=== PATIENT | male | born 1955 ===

== ENCOUNTER 2017-04-19 14:07 | Emergency (ER) | payer MEDICARE, OTHER ==
[2017-04-19 14:07] VITALS: BMI 38.2
[2017-04-19 14:11] VITALS: BP 137/76; PULSE 72; RESP 16; TEMP 98; O2SAT 96
--- NOTE | 2017-04-19 14:43 | ED PDOC ---
Arrival/HPI - General Chief Complaint: Dizziness/Lightheaded Time Seen by Provider: 04/19/17 14:18 - History of Present Illness Narrative History of Present Illness (Text): 04/19/17 14:41 Patient is an 61 y/o M with hx of vertigo, with extensive negative outpatient workup, previously seen by me for similar complaint last year, presents to the ED complaining of dizziness. Patient reports that he was sitting in [facility] when he got dizzy. He describes the sensation as "room spinning." He reports associated nausea, worsened with movement. He denies headache. Denies trauma. Denies vomiting. He reports that he was in his usual state of health this morning. He reports that this episode is consistent with prior episodes and he took his meclizine when his symptoms started. He reports negative workup by ENT and neurology. Denies chest pain, shortness fo breath, fever, weakness, numbness, Past Medical History - Infectious Disease Hx of Infectious Diseases: None - Cardiac Hx Hypertension: Yes Hx Peripheral Edema: Yes - Pulmonary Hx Chronic Obstructive Pulmonary Disease (COPD): Yes Hx Sleep Apnea: Yes (Sleep Study done in 2011) - Neurological Hx Neurological Disorder: Yes Hx Dizziness: Yes Hx Syncope: Yes (Syncopal episode in 2013. Fell and needed stitches at back of head) Hx Vertigo: Yes - HEENT Hx HEENT Disorder: No - Renal Hx Renal Disorder: Yes Hx Kidney Stones: Yes (SURGERY- kidney stone) - Endocrine/Metabolic Hx Endocrine Disorders: Yes Hx Diabetes Mellitus Type 2: Yes - Hematological/Oncological Hx Blood Disorders: No - Integumentary Hx Dermatological Disorder: No - Musculoskeletal/Rheumatological Hx Musculoskeletal Disorders: Yes - Gastrointestinal Hx Gastrointestinal Disorders: Yes Hx Gastroesophageal Reflux: Yes - Genitourinary/Gynecological Hx Genitourinary Disorders: No - Psychiatric Hx Substance Use: No - Surgical History Other/Comment: kidney stone removal 1991 - Anesthesia Hx Anesthesia: Yes Hx Anesthesia Reactions: No Hx Malignant Hyperthermia: No - Suicidal Assessment Feels Threatened In Home Enviroment: No Family/Social History Family/Social History: No Known Family HX Smoking Status: Current Some Days Smoker Hx Alcohol Use: No Hx Substance Use: No Allergies/Home Meds Allergies/Adverse Reactions: Allergies No Known Allergies Allergy (Verified 04/19/17 14:08) Home Medications: Home Meds Medication Instructions Recorded Confirmed Pregabalin [Lyrica] 50 mg PO Q12H PRN 10/09/15 10/10/16 Review of Systems - Review of Systems Constitutional: absent: Fatigue, Weight Change, Fevers Eyes: absent: Vision Changes Respiratory: absent: SOB, Cough Cardiovascular: absent: Chest Pain, Palpitations Gastrointestinal: absent: Abdominal Pain, Constipation, Diarrhea, Nausea Genitourinary Male: absent: Dysuria Skin: absent: Rash Neurological: Dizziness. absent: Headache, Focal Weakness, Gait Changes, Speech Changes, Facial Droop, Disequilibrium, Seizure Hemo/Lymphatic: absent: Adenopathy Psychiatric: absent: Anxiety Physical Exam Vital Signs Temp Pulse Resp BP Pulse Ox 04/19/17 14:09 98.0 F 72 16 137/76 96 Temperature: Afebrile Blood Pressure: Normal Pulse: Regular Respiratory Rate: Normal Appearance: Positive for: Well-Appearing, Comfortable Mental Status: Positive for: Alert and Oriented X 3 - Systems Exam Head: Present: Atraumatic, Normocephalic Pupils: Present: PERRL Extroacular Muscles: Present: EOMI, Other (no nystagmus) Respiratory/Chest: Present: Clear to Auscultation, Good Air Exchange. No: Respiratory Distress Cardiovascular: Present: Regular Rate and Rhythm, Normal S1, S2. No: Murmurs Abdomen: Present: Normal Bowel Sounds. No: Tenderness, Distention Back: Present: Normal Inspection Upper Extremity: Present: Normal Inspection, Normal ROM Lower Extremity: Present: Normal Inspection, Neurovascularly Intact. No: Edema , CALF TENDERNESS Neurological: Present: GCS=15, CN II-XII Intact, Speech Normal, Motor Func Grossly Intact, Normal Sensory Function, Normal Cerebellar Funct, Gait Normal, Normal 2Pt Descrimination Psychiatric: Present: Alert, Oriented x 3 Medical Decision Making ED Course and Treatment: 04/19/17 14:43 Patient has had extensive negative workup and has unchanged symptoms (including negative CT head carotid duplex on 01/30/16) EKG shows NSR at 72bpm with LVH. Isolated t wave inversion in III, but no acute ST changes. unchanged from prior on 08/20/16 Will get fs, give meclizine and zofran and reeval 04/19/17 15:08 FS:124. Patient reports vertigo resolved after meclizine. He is ambulating around the ED without issue. He continues to be neurologically intact. He is requesting 1 tramadol for chronic pain prior to discharge. Patient had prior similar complaint. He reports he will follow-up with PMD - Medication Orders Current Medication Orders: Tramadol HCl (Ultram) 50 mg PO STAT STA Stop: 04/19/17 15:52 Discontinued Medications Meclizine HCl (Antivert) 50 mg PO STAT STA Stop: 04/19/17 14:30 Last Admin: 04/19/17 14:40 Dose: 50 mg Ondansetron HCl (Zofran Odt) 4 mg PO STAT STA Stop: 04/19/17 14:30 Last Admin: 04/19/17 14:40 Dose: 4 mg Disposition/Present on Arrival - Present on Arrival Any Indicators Present on Arrival: No History of DVT/PE: No History of Uncontrolled Diabetes: Yes Urinary Catheter: No History Surgical Site Infection Following: None - Disposition Have Diagnosis and Disposition been Completed?: Yes Diagnosis: Dizzy spells Disposition: HOME/ ROUTINE Disposition Time: 15:45 Patient Plan: Discharge Patient Problems: Current Active Problems Problem Status Onset Dizzy spells Acute Condition: GOOD Discharge Instructions (ExitCare): Vertigo (ED) Additional Instructions: Take meclizine as prescribed. Follow-up with neurology and ENT. Follow-up with PMD within 2 days. Return to ED if condition worsens.
--- NOTE | 2017-04-21 11:49 | CARD ---
APPROVED REPORT EKG Measurement Heart [id number] <Conclusion> Normal sinus rhythm Moderate voltage criteria for LVH, may be normal variant Inferior infarct, age undetermined Abnormal ECG
== END 2017-04-19 16:05 | disposition home or self-care (01) ==
LOC: H.ER 14:07
DX: R42 Dizziness and giddiness (principal); E11.9 Type 2 diabetes mellitus without complications; I10 Essential (primary) hypertension; J44.9 Chronic obstructive pulmonary disease, unspecified

== ENCOUNTER 2017-07-26 11:54 | Emergency (ER) | payer MEDICARE ==
[2017-07-26 12:01] VITALS: BMI 39.5
[2017-07-26] MEDS: Sodium Chloride 0.9% 1,000 ML IV STA (12:56)
[2017-07-26 13:09] LABS: BASO % 0.5 % (0.0-2.0); EOS # 0.3 K/uL (0.0-0.7); EOS % 3.1 % (0.0-4.0); HEMATOCRIT 40.8 % (35.0-51.0); LYMPH % 19.5 % (20.0-40.0); MEAN CELL VOLUME 87.1 fl (80.0-94.0); MEAN CORPUSCULAR HEMOGLOBIN 29.3 pg (27.0-31.0); MEAN CORPUSCULAR HGB CONC 33.6 g/dL (33.0-37.0); MEAN PLATELET VOLUME 9.8 fl (7.2-11.7); MONO # 0.6 K/uL (0.0-0.8); MONO % 5.4 % (0.0-10.0); NEUT # 7.4 K/uL (1.8-7.0); NEUT % 71.5 % (50.0-75.0); NRBC % 0.1 % (0.0-0.0); RED CELL DISTRIBUTION WIDTH 14.5 % (11.5-14.5); WHITE BLOOD COUNT 10.3 K/uL (4.8-10.8)
[2017-07-26 13:31] LABS: PARTIAL THROMBOPLASTIN TIME 37.4 Seconds (25.6-37.1)
[2017-07-26 13:42] LABS: ALB/GLOB RATIO 1.3 (1.0-2.1); ALKALINE PHOSPHATASE 74 U/L (38-126); ALT/SGPT 25 U/L (21-72); AST/SGOT 21 U/L (17-59); BILIRUBIN,TOTAL 0.7 mg/dl (0.2-1.3); BLOOD UREA NITROGEN 17 mg/dl (9-20); CALCIUM 9.3 mg/dL (8.4-10.2); CARBON DIOXIDE 27 mmol/L (22-30); CHLORIDE 103 mmol/L (98-107); GFR AFRICAN-AMERICAN > 60; GLUCOSE,RANDOM 179 mg/dL (75-110); POTASSIUM 3.8 MMOL/L (3.6-5.0); SODIUM 148 mmol/l (132-148); TOTAL PROTEIN 7.9 G/DL (6.3-8.2)
--- NOTE | 2017-07-26 13:46 | ED PDOC ---
HPI: General Adult Time Seen by Provider: 07/26/17 12:29 Chief Complaint (Nursing): Dizziness/Lightheaded Chief Complaint (Provider): dizziness History Per: Patient History/Exam Limitations: no limitations Additional Complaint(s): 62yo M in ED with hx of vertigo in ER sent by clinic for acute onset of dizziness while at appointment, describing peripheral vertigo with diplopia and cough x 1 without sputum production.admits to mild SOB-but ongoing for>2-3 months worse when walking. denies: Headache, numbness/tingling in UE/LE, change in memory or speech, abdominal pain, hemautuira, dsyuria, rash or sick contacts, head injury, ches4t pain pmd: declan Past Medical History Reviewed: Historical Data, Nursing Documentation, Vital Signs Vital Signs: Last Vital Signs Temp 98.6 F 07/26/17 15:37 Pulse 86 07/26/17 15:37 Resp 23 07/26/17 15:37 BP 161/101 H 07/26/17 15:37 Pulse Ox 96 07/26/17 17:41 - Medical History PMH: Back Problems, COPD, Diabetes, GERD, HTN, Hypercholesterolemia, Hyperlipidemia, Kidney Stones (SURGERY- kidney stone), Peripheral Edema, Chronic Kidney Disease, Sleep Apnea (Sleep Study done in 2011), Chronic Pain ( Left Leg and Lower Back r/t Sciatica) - Family History Family History: States: Unknown Family Hx - Immunization History Hx Tetanus Toxoid Vaccination: No Hx Influenza Vaccination: Yes Hx Pneumococcal Vaccination: No - Home Medications Home Medications: Ambulatory Orders Medication Instructions Recorded DULoxetine [Cymbalta] 60 mg PO DAILY 07/26/17 Levofloxacin [Levaquin] 750 mg PO DAILY #6 tablet 07/26/17 Lisinopril [Zestril] 20 mg PO DAILY 07/26/17 Meclizine [Meclizine*] 25 mg PO TID PRN 07/26/17 MetFORMIN [glucoPHAGE] 1,000 mg PO BID 07/26/17 Metoprolol Succinate [Toprol XL] 50 mg PO DAILY 07/26/17 Omeprazole [Omeprazole] 20 mg PO DAILY 07/26/17 Pravastatin Sodium [Pravachol] 20 mg PO HS 07/26/17 SITagliptin [Januvia] 100 mg PO DAILY 07/26/17 - Allergies Allergies/Adverse Reactions: Allergies Allergy/AdvReac Type Severity Reaction Status Date / Time No Known Allergies Allergy Verified 04/19/17 14:08 Review of Systems ROS Statement: Except As Marked, All Systems Reviewed And Found Negative Neurological: Positive for: Dizziness Physical Exam - Reviewed Nursing Documentation Reviewed: Yes Vital Signs Reviewed: Yes - Physical Exam Appears: Positive for: Non-toxic, No Acute Distress, Uncomfortable Head Exam: Positive for: ATRAUMATIC, NORMAL INSPECTION, NORMOCEPHALIC Skin: Positive for: Normal Color, Warm, DRY Eye Exam: Positive for: Normal appearance, EOMI, PERRL, Other (visual feilds intact). Negative for: Nystagmus ENT: Positive for: Normal ENT Inspection Neck: Positive for: Normal, Painless ROM Cardiovascular/Chest: Positive for: Regular Rate, Rhythm Respiratory: Positive for: CNT, Normal Breath Sounds Gastrointestinal/Abdominal: Positive for: Normal Exam, Bowel Sounds, Soft Back: Positive for: Normal Inspection Extremity: Positive for: Normal ROM Neurologic/Psych: Positive for: Alert, caustic cresylate shift superintendent II-XII (intact), Oriented, Other (no drift noted. ). Negative for: Motor/Sensory Deficits, Facial Droop - Laboratory Results Result Diagrams: 07/26/17 13:00 07/26/17 13:29 - ECG ECG Rhythm: Positive for: Normal QRS, Normal ST Segment, Sinus Rhythm O2 Sat by Pulse Oximetry: 96 - Radiology X-Ray: Interpreted by Me, Read By Radiologist X-Ray Interpretation: Infiltrates (RLL ) - Other Rad head ct X-Ray: Read By Radiologist (NAD) - Progress ED Course And Treament: pt with low Pulse ox on monitor placed on O2 4L. due to low O2 at 92% RA , dizziness and c/o SOB >2 months will order D-dimer. pt given fluids, and meclizine for vertigo. Vital Signs - 24 hr 07/26/17 07/26/17 12:00 14:02 Temperature 98.5 F Pulse Rate 88 Respiratory 17 Rate Blood Pressure 150/96 H O2 Sat by Pulse [address] scan head for dizziness, xray of chest for cough and the following : Orders Category Date Time Status HEAD W/O CONTRAST [CT] Stat CT 07/26/17 12:48 Taken ELECTROCARDIOGRAM Stat Cardiology 07/26/17 12:29 Ordered CMP [COMP METABOLIC PANEL] Stat Chem 07/26/17 13:29 Completed EKG-ED [EDNURTX] STAT ED Care 07/26/17 12:30 Active CHEST TWO VIEWS (PA/LAT) [RAD] Stat Exams 07/26/17 12:48 Taken CBC (WITH DIFFERENTIAL) Stat MARISELA 07/26/17 13:00 Completed D DIMER [COAG] Stat MARISELA 07/26/17 13:00 Results PARTIAL THROMBOPLASTIN TIME [COAG] Stat MARISELA 07/26/17 13:00 Results PROTHROMBIN TIME [COAG] Stat MARISELA 07/26/17 13:00 Results Meclizine [Antivert] Med 07/26/17 12:50 Discontinued 50 mg PO .STK-MED ONE Meclizine [Antivert] Med 07/26/17 12:29 Discontinued 50 mg PO ONCE ONE Sodium Chloride 0.9% 1,000 ml Med 07/26/17 12:29 Discontinued IV 1,000 mls/hr Glucose, Blood, POC STAT Pt Care 07/26/17 12:29 Active URINALYSIS Stat URINALYSIS 07/26/17 12:29 Uncollected Medical Decision Making Medical Decision Making: CT shows: Minimal right basilar atelectasis or infiltrate seen at the right lower lobe immediately cephalad to the right hemidiaphragm. No pleural effusion or significant lymphadenopathy. Unremarkable appearing left lung. Vital Signs - 24 hr 07/26/17 07/26/17 07/26/17 12:00 14:50 15:37 Temperature 98.5 F 98.6 F Pulse Rate 88 86 Respiratory 17 23 Rate Blood Pressure 150/96 H 161/101 H O2 Sat by Pulse 96 96 94 L Oximetry Pt while in ER govea been improving. able to walk around ER without discomfort or dizziness. admits he feels much improved compared to initial visit today. case discussed with MD Deneen, considering pt is no longer hypoxic, is not tacypneic and not tachycardic with unremarkable labs. pt will be d/c on levoquin and f.u with pmd. advised to return to ED if with persistent dizziness. Temp Pulse Resp BP Pulse Ox 98.8 F 94 H 16 176/93 H 96 07/26/17 17:42 07/26/17 17:42 07/26/17 17:42 07/26/17 17:42 07/26/17 17:45 Disposition - Clinical Impression Clinical Impression: Pneumonia Counseled Patient/Family Regarding: Studies Performed, Diagnosis, Need For Followup, Rx Given - Disposition Referrals: Provider TBD, [Primary Care Provider] - Disposition: Routine/Home Disposition Time: 17:42 Condition: STABLE Prescriptions: Levofloxacin [Levaquin] 750 mg PO DAILY #6 tablet Instructions: Bacterial Pneumonia (ED) Forms: [employer] ([place])
--- NOTE | 2017-07-26 14:07 | CT ---
PROCEDURE: CT HEAD WITHOUT CONTRAST. HISTORY: dizziness with diplopia and nausea COMPARISON: None available. TECHNIQUE: Axial computed tomography images were obtained through the head/brain without intravenous contrast. Radiation dose: Total exam DLP = 903.22 mGy-cm. This CT exam was performed using one or more of the following dose reduction techniques: Automated exposure control, adjustment of the mA and/or kV according to patient size, and/or use of iterative reconstruction technique. FINDINGS: HEMORRHAGE: No intracranial hemorrhage. BRAIN: No mass effect or edema. No atrophy or chronic microvascular ischemic changes. VENTRICLES: Asymmetry of the lateral ventricles, right larger than left. This is a chronic finding. There is bustamante shift of the septum pellucidum towards the left side, again unchanged compared to prior examinations dating back to 2013. CALVARIUM: Unremarkable. PARANASAL SINUSES: Chronic ethmoid and sphenoid sinusitis. MASTOID AIR CELLS: Unremarkable as visualized. No inflammatory changes. OTHER FINDINGS: None. IMPRESSION: No intracranial mass, hemorrhage or evidence of acute infarct. Chronic asymmetry of lateral ventricles, questionable significance. Chronic ethmoid and sphenoid sinusitis.
--- NOTE | 2017-07-26 14:47 | RAD ---
HISTORY: cough COMPARISON: 08/23/2016 TECHNIQUE: Chest PA and lateral FINDINGS: LUNGS: Right lower lobe infiltrate. Followup advised. No other infiltrate identified. PLEURA: No significant pleural effusion identified. No pneumothorax apparent. CARDIOVASCULAR: Normal. OSSEOUS STRUCTURES: No significant abnormalities. VISUALIZED UPPER ABDOMEN: Normal. OTHER FINDINGS: None. IMPRESSION: Right lower lobe infiltrate.
[2017-07-26] MEDS ORDERED: Sodium Chloride 0.9% 100 ML ONE (16:33)
[2017-07-26] MEDS ORDERED: Iodixanol 320 MG/ML 100 ML BOTTLE IV ONE (16:33)
--- NOTE | 2017-07-26 17:28 | CT ---
PROCEDURE: CT Chest with contrast (Pulmonary Angiogram) HISTORY: elevated d-dimer, hypoxia , SOB COMPARISON: No prior chest CT available for comparison. TECHNIQUE: Axial computed tomography images were obtained of the chest in the pulmonary arterial phase of enhancement. Coronal and sagittal reformatted images were created and reviewed. Intravenous contrast dose: Visipaque 320, 95 cc Radiation dose: Total exam DLP = 436.85 mGy-cm. This CT exam was performed using one or more of the following dose reduction techniques: Automated exposure control, adjustment of the mA and/or kV according to patient size, and/or use of iterative reconstruction technique. FINDINGS: PULMONARY ARTERIES: Unremarkable. No pulmonary embolism. AORTA: No acute findings. No thoracic aortic aneurysm. LUNGS: Limiting infiltrate or atelectasis appreciate the right lower lobe base immediately cephalad to the right hemidiaphragm. The left lung is unremarkable throughout. PLEURAL SPACES: Unremarkable. No effusion or pneuomothorax. HEART: Unremarkable. No cardiomegaly. No significant pericardial effusion. LYMPH NODES: No lymphadenopathy. BONES, CHEST WALL: Multilevel thoracic spondylosis is appreciate including syndesmotic fights which may indicate ankylosing spondylitis. OTHER FINDINGS: Unremarkable. IMPRESSION: 1. No CT evidence to suggest pulmonary embolus at this time. 2. Minimal right basilar atelectasis or infiltrate seen at the right lower lobe immediately cephalad to the right hemidiaphragm. No pleural effusion or significant lymphadenopathy. Unremarkable appearing left lung. 3. Incidental but potential ankylosing spondylitis pattern of the thoracic spine. Clinically correlate.
[2017-07-26 17:43] VITALS: BP 176/93; PULSE 94; RESP 16; TEMP 98.8; O2SAT 96
[2017-07-26] MEDS: levoFLOXacin 750 MG TAB PO STA (18:31)
--- NOTE | 2017-07-27 00:51 | CARD ---
APPROVED REPORT EKG Measurement Heart [id number] <Conclusion> Normal sinus rhythm Minimal voltage criteria for LVH, may be normal variant Borderline ECG
== END 2017-07-26 18:38 | disposition home or self-care (01) ==
LOC: H.ER 11:54 → SUPCPDRO 11:54 → H.ER 18:38
DX: J10.1 Influenza due to other identified influenza virus with other respiratory manifestations (principal)
CPT/HCPCS: 70450; 71020; 71275; 80053; 82948; 84484; 85025; 85378; 85610; 85730; 93005; 99285; J7040; Q9967